=== PATIENT | male | born 1955 | race Caucasian/White ===

== ENCOUNTER → 2023-12-06 | Outpatient (CLI) | payer OTHER ==
[~2023-12-06] MED LIST: IOHEXOL 350 MG/ML 100ML INFUS..BTL IV ONE
== END | disposition home or self-care (01) ==
LOC: RAH 09:05
PROVIDERS: ATTEND Internal Medicine
DX: J44.9 Chronic obstructive pulmonary disease, unspecified (principal); C49.A2 Gastrointestinal stromal tumor of stomach; R10.33 Periumbilical pain; M47.815 Spondylosis without myelopathy or radiculopathy, thoracolumbar region; R16.0 Hepatomegaly, not elsewhere classified
CPT/HCPCS: 71270; 74178; Q9967